=== PATIENT | female | born 1945 | race Caucasian/White ===

== ENCOUNTER 2019-11-25 17:42 | Emergency (ER) | payer MEDICARE, BC, SELFPAY ==
[2019-11-25 17:48] VITALS: BP 152/138; PULSE 69; RESP 16; TEMP 37.3; O2SAT 93; BMI 32.8
--- NOTE | 2019-11-25 18:14 | CT_ITS ---
STUDY: CT BRAIN WITHOUT CONTRAST REASON FOR EXAM: Female, 74 years old. S/P FALL X 2 TODAY, ? LOC, HEMATOMA L POSTERIOR HEAD, ON COUMADIN, HX HTN, DVT RADIATION DOSAGE (If Supplied By Facility): CTDIvol = ( 44.99 ) mGy, DLP = ( 1041.04 ) mGycm TECHNIQUE: Transaxial CT imaging of the brain was performed without administration of intravenous contrast material. Individualized dose optimization techniques were used for this CT. COMPARISON: No relevant priors. FINDINGS: There is hematoma in the soft tissues overlying left parietal bone without associated skull fracture. Normal size ventricles and extra-axial spaces for the patient''s age. There is nonspecific focal hypoattenuation in the left temporal frontal region. This is likely due to chronic ischemic changes.. Normal basal ganglia and thalami. Normal brainstem. Normal cerebellum. There is no intracranial hemorrhage. There are no findings of an acute ischemic infarction. Normal visualized paranasal sinuses. CT/Brain/Head without Contrast IMPRESSION: Soft tissue swelling overlying the left parietal bone without skull fracture. No evidence for acute intracranial bleed. Hypoattenuation in the left frontal temporal region of indeterminate etiology most likely chronic ischemic changes. Clinical correlation is recommended MRI may be useful for further assessment if clinically warranted Electronically Signed: Roland Meraz MD at 19:16 EST , Service support ,
--- NOTE | 2019-11-25 18:15 | ED.DCSUM_ITS ---
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 she has chronic falling episodes she falls backwards and hits her head, she is on Coumadin, she has had normal INR as she is not been ill in any way she is not supposed to get up by herself without assistance apparently the patient The patient understood that she had been privileges to get up on her own so she got up to use the bathroom and as she was positioning herself in the bathroom she fell backward striking her head she had no LOC she has no neck chest abdominal pain numbness weakness paresthesias or extremity pain she has a contusion to the left occipital level of her head she was brought in for evaluation Sister expresses frustration as to how the care home could let her up without assistance but the patient verbalized the notion that she was given privileges to get up without assistance Past Medical History - Allergies and Home Meds Allergies/Adverse Reactions: Allergies adhesive tape Allergy (Verified 11/25/19 17:47) Rash bacitracin [From Polysporin] Allergy (Verified 11/25/19 17:47) Rash bee venom protein (honey bee) Allergy (Verified 11/25/19 17:47) Unknown clindamycin HCl [From Cleocin] Allergy (Verified 11/25/19 17:47) Abd cramps/diarrhea clindamycin palmitate HCl [From Cleocin] Allergy (Verified 11/25/19 17:47) Abd cramps/diarrhea clindamycin phosphate [From Cleocin] Allergy (Verified 11/25/19 17:47) Abd cramps/diarrhea clotrimazole Allergy (Verified 11/25/19 17:47) Rash erythromycin base Allergy (Verified 11/25/19 17:47) Hives ibuprofen Allergy (Verified 11/25/19 17:47) Hives levofloxacin [From Levaquin] Allergy (Verified 11/25/19 17:47) Hives moxifloxacin HCl [From Avelox] Allergy (Verified 11/25/19 17:47) Other NSAIDS (Non-Steroidal Anti-Inflamma Allergy (Verified 11/25/19 17:47) Hives Penicillins Allergy (Verified 11/25/19 17:47) Abd cramps/diarrhea polymyxin B sulfate [From Polysporin] Allergy (Verified 11/25/19 17:47) Rash Quinolones Allergy (Verified 11/25/19 17:47) Hives ranitidine Allergy (Verified 11/25/19 17:47) Unknown Sulfa (Sulfonamide Antibiotics) Allergy (Verified 11/25/19 17:47) Hives terfenadine [From Seldane] Allergy (Verified 11/25/19 17:47) Unknown doxycycline Adverse Reaction (Verified 11/25/19 17:47) Abd cramps/diarrhea esomeprazole magnesium [From Nexium] Adverse Reaction (Verified 11/25/19 17:47) Other lisinopril Adverse Reaction (Verified 11/25/19 17:47) Unknown metaxalone [From Skelaxin] Adverse Reaction (Verified 11/25/19 17:47) Unknown nabumetone [From Relafen] Adverse Reaction (Verified 11/25/19 17:47) Other nitrofurantoin [From Macrobid] Adverse Reaction (Verified 11/25/19 17:47) Abd cramps/diarrhea nitrofurantoin macrocrystalline [From Macrobid] Adverse Reaction (Verified 11/25/19 17:47) Abd cramps/diarrhea tetracycline Adverse Reaction (Verified 11/25/19 17:47) Abd cramps/diarrhea Primary Care Physician: Dennys Mills MD [Primary Care Provider] - Past Medical History: - Surgical History: appendectomy, cholecystectomy, mastectomy Smoking Status: Never smoker Review of Systems ROS: - Moves all of the above General: Reports: - - Fusion to the left occipital area. Denies: Chills, Fever, Sweats Eyes: Denies: Visual changes - bilaterally, Diplopia ENT: Denies: Rhinorrhea, Sore throat Cardiovascular: Denies: Chest pain, Palpitations Respiratory: Denies: Dyspnea, Cough, Dyspnea on exertion Gastrointestinal: Denies: Abdominal pain, Nausea, Vomiting, Diarrhea, Melena, Hematochezia Genitourinary: Denies: Dysuria, Hematuria, Frequency Musculoskeletal: Denies: Back pain, Extremity Pain Skin: Denies: Rash, Wounds Neurological: Denies: Headache, Weakness, Numbness Physical Exam Vital Signs/Narrative: Vital Signs Temp Pulse Resp BP Pulse Ox 11/25/19 17:48 99.2 F H 69 16 152/138 H 93 General: Well nourished, Well developed, No Acute Distress Head: - - Is a soft contusion to the left occipital area her head that was unremarkable her ENT exam is baseline for her she has a slow johnny her speech sister states that normal sister states she is neurologically normal she is moving all 4 extremities she has no complaints of pain anywhere in her body except for this occipital area she has no neck chest abdomen upper or lower extremity or pelvic pain no abdominal pain Eyes: Perrl, EOMI ENT: Moist mucous membranes, No rhinorrhea Neck: Supple, Nontender Cardiovascular: Regular rate, Regular rhythm, No murmurs Respiratory: No distress, CTA bilaterally, Chest nontender Abdomen: Soft, Nontender, Nondistended, Normal bowel sounds Back: Nontender, Normal Inspection Extremities: Nontender, No edema Skin: Normal color, No rash Neurological: Alert, Oriented x3, Cranial nerves II-XII grossly intact, Normal Strength, Normal Sensation Psychological: Normal affect, Normal Mood Diagnostic/Tx/Re-eval - Medical Decision Making Even all the above head CT INR obtained Patient's INR is 3.2, head CT shows nothing acute see that report, she has been awake and alert neurologically normal unchanged her baseline Family and patient, will discharge home she will hold her Coumadin for 24 hours, follow-up with her outpatient providers given head injury sheet return for change in symptoms Home stable Impression final head injury on Coumadin therapy ED Disposition - Plan for ED Patient: Diagnosis: Head injury Referrals: Dennys Mills MD [Primary Care Provider] - Additional Instructions: Hold Coumadin for 24 hours do not get up without assistance return for change in symptoms
[2019-11-25 18:54] LABS: International Normalized Ratio 3.2; Prothrombin Time (Protime)PT. 33.1 SECONDS (11.7-14.9)
[2019-11-25 19:19] VITALS: O2SAT 97
[2019-11-25 19:22] VITALS: BP 139/101; PULSE 69; RESP 22; O2SAT 97
[2019-11-25 20:28] VITALS: BP 149/99; PULSE 72; RESP 18; O2SAT 95
== END 2019-11-25 20:37 | disposition skilled nursing facility (03) ==
LOC: ED 18:33
PROVIDERS: Emergency Provider Emergency Medicine; PCP Family Medicine; Referring Provider Family Medicine
DX: S00.83XA Contusion of other part of head, initial encounter (principal); W19.XXXA Unspecified fall, initial encounter; Z91.81 History of falling; Y93.9 Activity, unspecified; Y92.9 Unspecified place or not applicable; M62.81 Muscle weakness (generalized); Z86.718 Personal history of other venous thrombosis and embolism; Z79.01 Long term (current) use of anticoagulants; Z79.899 Other long term (current) drug therapy
CPT/HCPCS: 70450; 85610; 99284; A4216